=== PATIENT | female | born 2000 | race Native Hawaiian/Other Pacific Islander ===

== ENCOUNTER 2023-10-24 15:03 | Inpatient (IN) | payer OTHER, SELFPAY ==
[2023-10-24] VITALS (19 sets, daily range): BP systolic 96–141; BP diastolic 59–93; PULSE 83–107; RESP 16–18; TEMP 36.2–36.6; BMI 29.7
--- NOTE | 2023-10-24 15:57 | LDADM ---
This patient, June Garcia, was admitted to Labor/Delivery/Recovery 107 on 10/24/23 at 15:03. Plans for labor, pain management and were discussed with patient. Patient/family oriented to hospital policies and general routines including ID bracelet, bed and alarms, visiting hours, pain management, procedures, bathroom and other care routines, personal items, smoking policy, room service/diet and guest tray routines, infant security routines, and visiting hours. Patient/Family are encouraged to report perceived risks to care and to ask questions if they do not understand what they are told or what they should do. See OBIX for further documentation.
[2023-10-24 16:06] LABS: Basophils Percent Auto 0.4 % (0.2-1.2); Eosinophils Absolute Auto 0.1 K/mm3 (0-0.3); Eosinophils Percent Auto 1.3 % (0-4.4); Hematocrit 35.3 % (37.0-47.0); Hemoglobin 11.4 g/dL (12.0-15.0); Immature Granulocyte Absolute 0.06 K/mm3 (0.00-0.031); Immature Granulocyte Percent A 0.6 % (0-0.5); Lymphocytes Absolute Auto 2.09 K/mm3 (0.9-3.2); Lymphocytes Percent Auto 22.2 % (18.3-44.2); Mean Corpuscular HGB Conc 32.3 g/dl (32-36); Mean Corpuscular Hemoglobin 28.6 pg (26-34); Mean Corpuscular Volume 88.5 fl (80-100); Mean Platelet Volume 11.3 fl (7.4-10.4); Monocytes Absolute Auto 0.8 K/mm3 (0.1-0.6); Monocytes Percent Auto 8.9 % (2.6-8.5); Neutrophils Absolute Auto 6.3 K/mm3 (1.3-6.7); Neutrophils Percent Auto 66.6 % (45.5-73.1); Platelet Count Result 202 k/mm3 (150-375); Red Blood Count 3.99 M/mm3 (4.2-5.4); White Blood Count 9.4 K/mm3 (4.5-10.0)
[2023-10-24] MEDS: LACTATED RINGERS 1,000 ML 125 ML IV CONT (16:33)
[2023-10-24] MEDS: OXYTOCIN 30 UNITS/NS 500 ML 30 UNITS/500 ML BAG IV CONT (16:33)
--- NOTE | 2023-10-24 16:33 | WPDANESEPP ---
Anes - Eval Pre Procedure Procedure: labor epidural Date/Time: 10/24/23 16:33 Surgeon: agnes Preop Diagnosis: pain during labor Pre Op Diagnosis: Leaking/Contractions Patient Data Age: 23 Gender: F Height: 1.52 m Weight: 69 kg Last Vital Signs Pulse 95 10/24/23 16:05 BP 114/80 10/24/23 16:05 O2 Del Method Room Air 10/24/23 15:55 Allergies Allergy/AdvReac Type Severity Reaction Status Date / Time No Known Allergies Allergy Verified 10/01/23 14:34 Home Medications Medication Instructions Recorded Confirmed Type prenat.vits,magali,[id number] 1 tablet 10/01/23 History Laboratory Tests 10/24/23 15:39 WBC 9.4 K/mm3 (4.5-10.0) RBC 3.99 L M/mm3 (4.2-5.4) Hgb 11.4 L g/dL (12.0-15.0) Hct 35.3 L % (37.0-47.0) MCV 88.5 fl (80-100) MCH 28.6 pg (26-34) MCHC 32.3 g/dl (32-36) RDW 13.0 % (11.5-14.5) Plt Count 202 k/mm3 (150-375) MPV 11.3 H fl (7.4-10.4) Immature Gran % (Auto) 0.6 H % (0-0.5) Neut % (Auto) 66.6 % (45.5-73.1) Lymph % (Auto) 22.2 % (18.3-44.2) [place] % (Auto) 8.9 H % (2.6-8.5) Eos % (Auto) 1.3 % (0-4.4) Baso % (Auto) 0.4 % (0.2-1.2) Lymph # (Auto) 2.09 K/mm3 (0.9-3.2) [place] # (Auto) 0.8 H K/mm3 (0.1-0.6) Eos # (Auto) 0.1 K/mm3 (0-0.3) Baso # (Auto) 0.0 K/mm3 (0.0-0.1) Abs Immat Gran (auto) 0.06 H K/mm3 (0.00-0.031) Absolute Neuts (auto) 6.3 K/mm3 (1.3-6.7) Absolute Nucleated RBC 0.0 K/mm3 (0.0-0.012) Nucleated RBC % 0.0 % (0.0-0.2) RPR Pending Patient hx anesthesia problems: none Family hx anesthesia problems: none Results Review: All pre-operative results and documents have been reviewed as part of the pre-operative evaluation. [facility] Past Medical History Medical History (Updated 10/24/23 @ 16:33 by Marva Mack CRNA) IUP (intrauterine ), incidental Family History Family History (Updated 10/01/23 @ 14:39 by Radha Bowie RN) Other Patient denies significant medical history Social History Social History Smoking status: Current every day smoker Tobacco type: e-cigarettes/vaping Second hand tobacco smoke exposure: Yes Additional smoking assessment comments: MJ use Substance use: never Do You Feel Safe in your Home?: Yes Lack of Transportation: No Lack of Food: Never True Current Housing: I Have Housing Concerned About Future Housing: No Difficulty Paying Gas/Electric Bills: No Difficulty Paying for Meds: No Currently Unemployed: No Education: Trade/Vocational Certificate Difficulty w/ Childcare or Family Care: No Spiritual care concerns: No Exam Day of Procedure 10/24/23 16:33
[2023-10-24] MEDS: AMPICILLIN 2 GM/NS 100 ML 2 GM/100 ML BAG IVPB (22:03)
[2023-10-25] VITALS (23 sets, daily range): BP systolic 104–137; BP diastolic 61–98; PULSE 85–226; RESP 16; TEMP 36.2–37.2; O2SAT 98–100
--- NOTE | 2023-10-25 01:33 | WPDOBADMIT ---
Obstetrics - Admit Note Admission Note: record reviewed. No pertinent additions to the history and/or any subsequent changes in the physical findings that are not consistent with the expected course of the were found. Additions to the history and/or subsequent changes in the physical findings follow. Pt arrived to LD after SROM at home, anticipate vaginal delivery
[2023-10-25] MEDS: AMPICILLIN 1 GM/NS 50 ML 1 GM/50 ML BAG IVPB (01:54)
--- NOTE | 2023-10-25 03:10 | PM.OBPRVD ---
OB - Vaginal Delivery Note Procedure Delivery date: 10/25/23 Delivery augmentation: Rupture of Membranes and Pitocin Delivery monitor: External FHT and External Uterine Route of delivery: Specimen: No Quantitative Blood Loss (ml): 85 Disposition: Floor Baby Date of : 10/25/23 Time of : 02:56 Weeks of gestation at delivery: 39 gender: Female presentation: vertex position: Left Occiput Anterior Placenta delivery description: Spontaneous Cord Vessel Description: 3 Vessels and Delayed Cord Clamping score one minute: 8 score five minutes: 9 Narrative: mother and baby skin to skin in stable condition
--- NOTE | 2023-10-25 05:53 | PC.NURSE ---
Patient transferred to post room #285 per wheelchair from labor and delivery. Support person present. Oriented to unit, room, information board, rooming in, admission packet and security measures. Patient verbalizes understanding.
[2023-10-25] MEDS: IBUPROFEN 600 MG TABLET PO (16:57)
[2023-10-25] MEDS: MULTIVIT/MIN/PREN/FOL AC/IRON TABLET 1 TAB PO (16:57)
[2023-10-26 05:21] LABS: Hematocrit 31.2 % (37.0-47.0); Hemoglobin 9.8 g/dL (12.0-15.0)
[2023-10-26 07:45] VITALS: BP 106/67; PULSE 91; RESP 16; TEMP 36.9; O2SAT 100
[2023-10-26] MEDS: DOCUSATE SODIUM 100 MG CAPSULE PO ×2 (08:56→16:19)
[2023-10-26] MEDS: POLYSACCHARIDE IRON COMPLEX 150 MG CAPSULE PO ×2 (08:56→16:20)
[2023-10-26] MEDS: MULTIVIT/MIN/PREN/FOL AC/IRON TABLET 1 TAB PO (08:56)
[2023-10-26 10:33] LABS: Rapid Plasma Reagin Non-Reactive (NonReactive)
--- NOTE | 2023-10-26 14:43 | PM.OBPNVD ---
OB - PN: Subj Subjective Date/time seen: 10/26/23 08:15 Interval history: PPD#1 Doing well, pain well controlled Ambulating, voiding without issue Baby girl doing well, supplementing with colostrum OB - PN: Obj Data Labs 10/26/23 05:16 Labs: Laboratory Results - last 24 hr 10/24/23 10/26/23 15:39 05:16 Hgb 9.8 L Hct 31.2 L RPR Non-reactive OB - PN A/P Plan day: 1 Plan: routine care Time Spent With Patient Time: Total time spent is greater than 50% in coordination of care (as documented) at patient's floor/unit and/or counseling patient: Review of Systems Review of Systems: All systems reviewed & are unremarkable except as noted in HPI and below Exam Const: General: comfortable, no acute distress, alert and awake Resp: Effort & Inspection: normal respiratory effort GI: GI Palp: Yes Soft to palpation
--- NOTE | 2023-10-26 19:13 | WPDANESPN ---
Anes - Prog Note Post-Op Date/Time: 10/26/23 19:13 Cardiovascular status: normal Respiratory status: normal Airway patency: baseline Mental status: baseline Post-Op hydration status: normal Vital Signs: Last Vital Signs Temp 36.9 C 10/26/23 07:45 Pulse 91 10/26/23 07:45 Resp 16 10/26/23 07:45 BP 106/67 10/26/23 07:45 Pulse Ox 100 10/26/23 07:45 O2 Del Method Room Air 10/25/23 04:16 Pain Score (VAS): 0 I/O: Intake & Output 10/26/23 10/26/23 10/26/23 07:59 15:59 23:59 Intake Total 240 Balance 240 Laboratory Tests 10/26/23 05:16 10/24/23 10/26/23 15:39 05:16 Hgb 9.8 L Hct 31.2 L RPR Non-reactive Post-procedural complaints: none Patient Feedback: Patient satisfied with anesthetic care.
[2023-10-26 20:20] VITALS: BP 111/77; PULSE 92; RESP 18; TEMP 36.7
[2023-10-27 07:55] VITALS: BP 118/73; PULSE 93; RESP 18; TEMP 33.4; O2SAT 100
--- NOTE | 2023-10-27 10:51 | PM.OBPNVD ---
OB - PN: Subj Subjective Date/time seen: 10/27/23 10:51 Interval history: PPD#2 Doing well, pain well controlled Ambulating, voiding without issue Baby girl doing well, latching without issue Ready for discharge home OB - PN: Obj Data Labs 10/26/23 05:16 OB - PN A/P Plan day: 2 Plan: discharge home Comments: follow up in 4 weeks Time Spent With Patient Time: Total time spent is greater than 50% in coordination of care (as documented) at patient's floor/unit and/or counseling patient: Review of Systems Review of Systems: All systems reviewed & are unremarkable except as noted in HPI and below Exam Const: General: comfortable, no acute distress, alert and awake Resp: Effort & Inspection: normal respiratory effort GI: GI Palp: Yes Soft to palpation
--- NOTE | 2023-10-27 10:52 | PM.OBDSVD ---
DS: Admitting Diagnosis Discharge Date 10/27/23 Admitting Diagnosis labor DS: Discharge Diagnosis Discharge Diagnosis (1) (spontaneous vaginal delivery): Code(s): O80 - Encounter for full-term uncomplicated delivery Status: Acute OB - DS: Summary OB Procedures : None OB Procedures Intrapartum: Spontaneous Vag Delivery OB Procedures: : None Time Spent with Patient Time attestation: Total time spent providing and/or coordinating discharge services: Discharge Plan Discharge Attending physician on discharge: Sam Ye Discharging Clinician: Sam Ye Patient Disposition: Home, Self-Care Activity: may shower, as tolerated and pelvic rest Diet: regular Discharge Instructions: Education: Mom and Baby Guide Given to: Mother Follow-Up: Call your delivering provider's office for an appointment to be seen in: 4 Weeks Mom and baby should come to the [facility] for the follow-up appointment. Appointment Date/Time: October 29, 2023 at 11:00 am What to expect at your follow-up visit: Blood Pressure Check Physical Assessment Call [phone] if you are unable to keep your appointment time. BREAST CARE: * Wear a snug supportive bra. * For engorgement discomfort: Breast Feeding: * Apply warm moist washcloths * Express milk as needed to relieve engorgement * Wear loose clothing Bottle Feeding: * May apply ice packs * For sore nipples: * Identify correct latch-on * Apply warm moist washcloths before and after nursing * Air dry nipples after nursing * May apply Lansinoh cream to nipples ABDOMINAL INCISION: (if applicable) * Allow incision to air dry * Do NOT use lotions for powders on your incision * When showering, allow soap and water to run over the incision, but do not wash incision EPISIOTOMY/PERINEAL CARE: * Until bleeding stops, use your dejan bottle after urinating * Change your pad frequently throughout the day * You may take sitz baths several times a day (fill your bathtub with warm water and soak for 20 minutes.) Do NOT bathe in the water * No tub baths until seen by your physician - You may shower ACTIVITY: * Rest as much as possible. * Do not exercise or lift anything heavier than your baby (such as laundry or other children.) * Avoid stairs or driving as much as possible. * Do not put anything into the vagina. No douching, tampons, or sexual activity until seen by physician. NOTIFY PHYSICIAN IF YOU HAVE ANY QUESTIONS OR IF ANY OF THE FOLLOWING SYMPTOMS OCCUR: * If your episiotomy or incision becomes red, swollen, or more painful than what you have experienced in the hospital. * If your vaginal bleeding becomes foul smelling. * If your vaginal bleeding becomes more heavy than a period or if your bleeding changes from pink to bright red. However, you may pass an occasional walnut-sized clot once or twice for the first week . * If you experience a sharp, shooting pain in you calves. * If you discover a hard, reddened area on your breast or if you experience flu-like symptoms. DIET: * Eat regular, well-balanced meals. * Drink plenty of fluids daily. If , drink to thirst. Stand Alone Forms: General Discharge Information Follow-up/Referrals: Sam Ye MD [Physician] - 4 Weeks Discharge Medications: Continued prenat.vits,magali,[id number] Tablet 1 tablet Date of admission: 10/24/23 15:03 Primary Care Provider: PHYSICIAN,MENTAL HEALTH PROGRAM DIRECTOR Admitting Provider: Sam Ye Attending physician on admission: Sam Ye Condition: Stable
--- NOTE | 2023-10-27 16:16 | PC.NURSE ---
[id number] Mother led the conversation with her experience so far, plan to feed her , and her ability to independently latch optimally without discomfort. Reminded mother to use good handwashing technique to prevent infection. Mother is feeding appropriately for growth of infant and understands stimulating to eat if needed. has had appropriate feedings in the last 24 hours meets the outcomes for weight, output, blood sugar and jaundice at this time. Mother states she is confident to continue effectively her at home, when to call for assistance, denies any additional assistance or education at this time. Reinforced understanding of milk production, transition of milk, signs of adequate intake, transition of stool, prevention/relief of engorgement, plugged ducts, mastitis, responsive watching for feeding cues, stimulating infant to breastfeed 1-3 hours after the start of the last feeding, community resources, and when to call a provider using the resource of the mom and baby guide and feeding sheet. Mother voiced understanding of the education shared.
== END 2023-10-27 10:45 | disposition home or self-care (01) | DRG 807 ==
LOC: ANHLDR 15:27 → ANHOB2 10-25 05:56
PROVIDERS: Advanced Practice Midwife; Admitting Provider Obstetrics & Gynecology; Visit Provider Obstetrics & Gynecology
DX: O42.02 Full-term premature rupture of membranes, onset of labor within 24 hours of rupture (principal); Z37.0 Single live birth; Z3A.39 39 weeks gestation of pregnancy
CPT/HCPCS: 36415; 84112; 85014; 85018; 85025; 86592; 86850; 86900; 86901; A9270; J0290; J2590; J7120